=== PATIENT | female | born 1955 | race Caucasian/White ===

== ENCOUNTER 2017-03-31 12:44 | Outpatient (CLI) | payer OTHER | END 2017-03-31 12:45 | disposition home or self-care (01) | LOC: BICMAMMO 12:44 | PROVIDERS: ATTEND Family Medicine | DX: Z12.31 Encounter for screening mammogram for malignant neoplasm of breast (principal) | CPT/HCPCS: 77063; 77067 ==

== ENCOUNTER 2018-04-06 07:39 | Outpatient (CLI) | payer OTHER | END 2018-04-06 07:40 | disposition home or self-care (01) | LOC: BICMAMMO 07:39 | PROVIDERS: ATTEND Family Medicine | DX: Z12.31 Encounter for screening mammogram for malignant neoplasm of breast (principal) | CPT/HCPCS: 77063; 77067 ==

== ENCOUNTER 2019-04-14 07:45 | Outpatient (CLI) | payer OTHER ==
--- NOTE | 2019-04-14 08:21 | MMO ---
Bilateral MAMMO Bilat Screen [facility]. CLINICAL HISTORY: Patient is 63 years old and is seen for screening. The patient has no family history of breast cancer. The patient has no personal history of cancer. VIEWS: The views performed were: bilateral craniocaudal with tomosynthesis and bilateral mediolateral oblique with tomosynthesis. FILMS COMPARED: The present examination has been compared to prior imaging studies performed at [facility] on 02/19/2015, 02/26/2016, 03/31/2017 and 04/06/2018. This study has been interpreted with the assistance of computer-aided detection. MAMMOGRAM FINDINGS: There are scattered fibroglandular densities. There are no suspicious masses, suspicious calcifications, or new areas of architectural distortion. IMPRESSION: THERE IS NO MAMMOGRAPHIC EVIDENCE OF MALIGNANCY. A ROUTINE FOLLOW-UP MAMMOGRAM IN 1 YEAR IS RECOMMENDED. THE RESULTS OF THIS EXAM WERE SENT TO THE PATIENT. ACR BI-RADS Category 1 - Negative MAMMOGRAPHY NOTE: 1. A negative mammogram report should not delay a biopsy if a dominant of clinically suspicious mass is present. 2. Approximately 10% to 15% of breast cancers are not detected by mammography. 3. Adenosis and dense breasts may obscure an underlying neoplasm. Reported by: FRANCIS GONZALES MD Electonically Signed: [id number]
== END 2019-04-14 07:46 | disposition home or self-care (01) ==
LOC: BICMAMMO 07:45
PROVIDERS: ATTEND Family Medicine
DX: Z12.31 Encounter for screening mammogram for malignant neoplasm of breast (principal)
CPT/HCPCS: 77063; 77067

== ENCOUNTER 2020-04-11 16:46 | Inpatient (IN) | payer OTHER ==
[~2020-04-11 16:46] MED LIST: Iopamidol-370 76% 500 ML 1 ML ONE
[2020-04-11 17:31] LABS: #Lymphocytes 1.1 thou/uL (1.20-3.40); #Monocytes 0.6 thou/uL (0.11-0.59); #Neutrophils 7.5 thou/uL (1.40-6.50); %Basophils 0.1 % (0.0-1.0); %Eosinophils 0.1 % (0.0-10.0); %Lymphocytes 12.1 % (21.0-51.0); %Monocytes 6.1 % (0.0-10.0); %Neutrophils 81.5 % (42.0-75.0); Mean Corpuscular Hemoglobin 29.9 pg (27.0-31.0); Mean Corpuscular Volume 90.6 fL (78.0-98.0); Mean Platelet Volume 7.6 fL (7.4-10.4); Platelet Count 306 thou/uL (130-400); RBC Distribution Width 11.7 % (11.5-14.5); White Blood Cell (WBC) Count 9.2 thou/uL (4.8-10.8)
--- NOTE | 2020-04-11 17:36 | RAD ---
Portable frontal chest radiograph: 04/11/2020 COMPARISON: 12/14/2015 HISTORY: Shortness of breath, Covid positive patient FINDINGS: Interstitial and alveolar opacity noted in the perihilar regions and both lung bases, left greater than right. No pneumothorax or large volume pleural effusion. IMPRESSION: Pulmonary parenchymal opacities as detailed above, suspicious for bilateral Covid pneumon ia.
[2020-04-11 17:39] LABS: PTT 30.1 sec (22.9-36.1)
[2020-04-11 17:54] LABS: ALT (SGPT) 28 U/L (8-55); AST (SGOT) 31 U/L (5-34); Albumin 4.4 g/dL (3.4-4.8); Alkaline Phosphatase 81 U/L (40-110); Anion Gap 20 mmol/L (10-20); BUN (Urea Nitrogen) 28 mg/dL (9.8-20.1); Bilirubin, Total 0.4 mg/dL (0.2-1.2); Calc. Creatinine Clearance 0 mL/min (70-130); Calcium 8.9 mg/dL (7.8-10.44); Carbon Dioxide 25 mmol/L (23-31); Chloride 96 mmol/L (98-107); Globulin 3.4 g/dL (2.4-3.5); Glucose 137 mg/dL (80-115); Potassium 4.5 mmol/L (3.5-5.1); Protein, Total 7.8 g/dL (6.0-8.3); Sodium 136 mmol/L (136-145)
[2020-04-11] MEDS ORDERED: Dexamethasone 4 mg/ml Vial ONE (18:10)
[2020-04-11] MEDS ORDERED: cefTRIAXone\\ROCEPHIN 1 GM VIAL ONE (18:10)
--- NOTE | 2020-04-11 18:37 | CT ---
CT angiogram chest: 04/11/2020 COMPARISON: None HISTORY: Covid positive patient with findings suspicious for bilateral Covid pneumonia on recent ches t radiograph. Increased shortness of breath with chest pain TECHNIQUE: Axial CT imaging at 2.5 mm intervals through the chest with IV contrast. Coronal and sagit kapil 3-D reformatted imaging obtained. FINDINGS: No axillary, hilar, or mediastinal lymphadenopathy. No pleural, pericardial, or mediastinal fluid. Limited assessment of the upper abdomen demonstrates hepatic hypodensities suggesting steatosis. No pulmonary arterial filling defect is seen to suggest the presence of acute pulmonary ar terial embolism. There is no pneumothorax seen on either side. There is extensive prominent interstitial and groundglass opacity within both lungs, most significant ly involving the bilateral lower lobes, the inferior posterior aspect of the left upper lobe/lingula, and the right middle lobe. Scattered areas of peripheral groundglass opacity are noted within bilateral upper lobes as well. No endobronchial lesion is seen. No acute osseous abnormality. IMPRESSION: Findings suspicious for extensive bilateral Covid pneumonia. No associated pulmonary doreen rial embolism is appreciated.
[2020-04-11] MEDS ORDERED: Guaifenesin DM 100-10/5 ML UDCUP PO PRN (18:59)
[2020-04-11] MEDS ORDERED: Senokot S 8.6-50 MG TAB PO PRN (18:59)
[2020-04-11] MEDS ORDERED: Acetaminophen 325 MG TAB PO PRN (18:59)
[2020-04-11] MEDS ORDERED: Ondansetron ODT 4 MG TAB PO PRN (18:59)
[2020-04-11] MEDS ORDERED: Calcium Carbonate 500 MG ChewTAB PO PRN (18:59)
[2020-04-11] MEDS ORDERED: Ondansetron PF 4 MG/2 ML Vial IVP PRN (18:59)
--- NOTE | 2020-04-11 19:09 | PDOC.HHP ---
Hospitalist HPI - History of Present Illness Chest pain History of Present Illness: PCP: Dr. Abhijit Alvarez The patient is a 64-year-old female with a past medical history significant for hypertension and hyperlipidemia that presents to emergency department for the above complaint. Patient reports the gradual onset of generalized chest pain for the past week. Pain is located throughout her chest, described as pressure- like, dull, exacerbated with standing up and relieved by nothing. She reports associated shortness of breath. She was diagnosed with Covid 19 virus 9 days ago, which would put her diagnosis date is 04/02/2020. She reports associated nonproductive cough that has since resolved. She reports that she was treated with a Z-Joe that she completed today. She denies heart palpitations and swelling to her lower extremities. She has no history of DVT/PE. No history of COPD/asthma. She denies any cough or hemoptysis at this time. She denies fever or chills. Reports mild nausea, no vomiting, hematochezia/melena, diarrhea. She denies any dysuria or hematuria. ED Course: Temperature 99, BP 127/87, HR 94, RR 18, SPO2 86% room airimproved 100% on [address] EKG normal sinus rhythm, T wave abnormalities CTA negative for pulmonary embolism, positive bilateral Covid pneumonia. CXR shows bilateral Covid pneumonia WBC 9.2, lymphocytopenia, ESR 93, CRP 3.85, LA 2.4 Medication administration: Rocephin IVPB Dexamethasone IVP Hospitalist ROS - Review of Systems All other systems reviewed; all pertinent +/- noted in HPI/Subj - Medication Medications: 1. Lovastatin 40 mg p.o. nightly 2. Bystolic 10 mg p.o. daily 3. Losartan 50 mg p.o. every morning Allergies: Penicillin, Bactrim CODE STATUS is full code. Hospitalist History - Past Medical History Source: patient Cardiac: reports: HTN, Hyperlipidemia - Past Surgical History Past Surgical History: reports: Hysterectomy - Family History Other Family History: Noncontributory to this case. - Social History Smoking Status: Never smoker Alcohol: reports: None Drugs: reports: none Living Situation: Alone Activity level: independent ambulation - Exam General Appearance: NAD, awake alert. negative: ill appearing General - other findings: Comfortable on 4 L nasal cannula Eye: anicteric sclera ENT: normocephalic atraumatic Neck: supple, no lymphadenopathy Heart: RRR, no murmur, no gallops, no rubs, normal peripheral pulses Respiratory: no wheezes, no ronchi, normal chest expansion, no tachypnea, rales Gastrointestinal: soft, non-tender, non-distended, normal bowel sounds, no guarding, no rigidity Extremities: no cyanosis, no edema Skin: no rashes Neurological: no focal deficits Musculoskeletal: normal tone, normal strength Psychiatric: normal affect, A&O x 3 Hospitalist Results - Labs Result Diagrams: 04/11/20 17:18 04/11/20 17:18 Lab results: WBC 9.2 thou/uL (4.8-10.8) 04/11/20 17:18 Hgb 14.0 g/dL (12.0-16.0) 04/11/20 17:18 Hct 42.5 % (36.0-47.0) 04/11/20 17:18 MCV 90.6 fL (78.0-98.0) 04/11/20 17:18 Plt Count 306 thou/uL (130-400) 04/11/20 17:18 Neutrophils % 81.5 % (42.0-75.0) H 04/11/20 17:18 ESR Westergren 93 mm/hr (Less than 30) H 04/11/20 17:18 Sodium 136 mmol/L (136-145) 04/11/20 17:18 Potassium 4.5 mmol/L (3.5-5.1) 04/11/20 17:18 Chloride 96 mmol/L (98-107) L 04/11/20 17:18 Carbon Dioxide 25 mmol/L (23-31) 04/11/20 17:18 BUN 28 mg/dL (9.8-20.1) H 04/11/20 17:18 Creatinine 0.86 mg/dL (0.6-1.1) 04/11/20 17:18 Glucose 137 mg/dL (80-115) H 04/11/20 17:18 Lactic Acid 2.4 mmol/L (0.5-2.2) H 04/11/20 17:18 Calcium 8.9 mg/dL (7.8-10.44) 04/11/20 17:18 Total Bilirubin 0.4 mg/dL (0.2-1.2) 04/11/20 17:18 AST 31 U/L (5-34) 04/11/20 17:18 ALT 28 U/L (8-55) 04/11/20 17:18 Alkaline Phosphatase 81 U/L (40-110) 04/11/20 17:18 C-Reactive Protein 3.85 mg/dL (= or < 0.5) H 04/11/20 17:17 Serum Total Protein 7.8 g/dL (6.0-8.3) 04/11/20 17:18 Albumin 4.4 g/dL (3.4-4.8) 04/11/20 17:18 - EKG Interpretation EKG: Normal sinus rhythm, T wave abnormalities - Radiology Interpretation Chest x-ray Status: report reviewed by me Additional Comment: Bilateral Covid pneumonia CT scan - chest Status: report reviewed by me Additional Comment: Negative pulmonary embolism. Positive bilateral Covid pneumonia Hospitalist H&P A/P - Problem (1) Pneumonia due to COVID-19 virus Code(s): U07.1 - COVID-19; J12.82 - PNEUMONIA DUE TO CORONAVIRUS DISEASE 2018 Status: Acute (2) Acute respiratory failure with hypoxia Code(s): J96.01 - ACUTE RESPIRATORY FAILURE WITH HYPOXIA Status: Acute (3) Chest pain Code(s): R07.9 - CHEST PAIN, UNSPECIFIED Status: Acute (4) Dehydration Code(s): E86.0 - DEHYDRATION Status: Acute (5) Hypertension Code(s): I10 - ESSENTIAL (PRIMARY) HYPERTENSION Status: Chronic (6) Hyperlipidemia Code(s): E78.5 - HYPERLIPIDEMIA, UNSPECIFIED Status: Chronic - Plan Plan: 64/F with PMH HTN and HLD presents for chest pain and shortness of breath. Admit to medical floor, inpatient status. Expected length of stay greater than 2 midnights. #Pneumonia due to COVID-19 virus Diagnosed 04/02/2020. Reported completing Z-Joe on 04/11/2020. Continue Rocephin and dexamethasone. Start Lovenox prophylaxis. Pharmacy communication to start remdesivir. Isolation precautions. Vitamin D, vitamin C, zinc. Mucinex DM as needed Supplemental oxygen. Trend acute phase reactants. #Acute respiratory failure with hypoxia Likely related problem #1. #Chest pain Likely related to problem #1 and 2. EKG normal sinus rhythm, T wave abnormalities. No ST elevation. Trend troponins, give aspirin. #Dehydration Reported decreased oral intake. BUN 28, creatinine 26 LA 2.4 Give 1 L normal saline x1 Repeat lactic acid #Hypertension Presented normotensive. Restart home dose of Bystolic and losartan. #Hyperlipidemia Chronic. Restart home dose lovastatin. Lovenox for DVT prophylaxis. Pepcid for GI prophylaxis. CODE STATUS full code. Discussed the case with attending physician, Dr. Mandel who agrees with plan of care.
[2020-04-11] MEDS ORDERED: Sodium Chloride 0.9% 1,000 ML IV SCH (20:15)
[2020-04-11] MEDS ORDERED: Aspirin 325 mg Enteric Coated Tablet PO SCH (20:15)
[2020-04-11 20:17] LABS: Troponin I Less than 0.010 ng/mL (< 0.028)
[2020-04-11 20:33] LABS: Lactic Acid 1.3 mmol/L (0.5-2.2)
[2020-04-11] MEDS: Famotidine 20 MG TAB PO SCH (22:15)
[2020-04-11] MEDS: Enoxaparin Sodium 40 MG/0.4 ML SYRINGE SC SCH (22:15)
[2020-04-11 22:56] LABS: Troponin I Less than 0.010 ng/mL (< 0.028)
[2020-04-12 01:38] LABS: Troponin I Less than 0.010 ng/mL (< 0.028)
[2020-04-12 06:36] LABS: #Lymphocytes 0.7 thou/uL (1.20-3.40); #Monocytes 0.1 thou/uL (0.11-0.59); #Neutrophils 4.1 thou/uL (1.40-6.50); %Lymphocytes 13.8 % (21.0-51.0); %Monocytes 2.9 % (0.0-10.0); %Neutrophils 83.2 % (42.0-75.0); Hemoglobin 12.3 g/dL (12.0-16.0); Mean Corpuscular HGB CONC 34.2 g/dL (32.0-36.0); Mean Corpuscular Volume 90.6 fL (78.0-98.0); Mean Platelet Volume 7.5 fL (7.4-10.4); Platelet Count 266 thou/uL (130-400); RBC Distribution Width 11.7 % (11.5-14.5); Red Blood Cell (RBC) Count 3.98 mill/uL (4.20-5.40); White Blood Cell (WBC) Count 4.9 thou/uL (4.8-10.8)
[2020-04-12 06:59] LABS: Anion Gap 13 mmol/L (10-20); BUN (Urea Nitrogen) 25 mg/dL (9.8-20.1); Calc. Creatinine Clearance 88 mL/min (70-130); Calcium 8.5 mg/dL (7.8-10.44); Carbon Dioxide 26 mmol/L (23-31); Chloride 102 mmol/L (98-107); Glucose 150 mg/dL (80-115); Potassium 4.2 mmol/L (3.5-5.1); Sodium 137 mmol/L (136-145)
[2020-04-12 08:04] LABS: SARS-CoV-2 by NAA DETECTED (NotDetected)
[2020-04-12 08:05] LABS: SARS-CoV-2 MS2 Positive; SARS-CoV-2 N Gene Positive; SARS-CoV-2 S Gene Positive; SARS-CoV-2 orf1ab Positive
[2020-04-12] MEDS ORDERED: REMDESIVIR (EUA) 200 MG in Sodium Chloride 0.9% 250 ML 210 ML IV SCH (08:15)
[2020-04-12] MEDS: Famotidine 20 MG TAB PO SCH (08:35)
[2020-04-12] MEDS: Saccharomyces boulardii 250 MG CAP PO SCH (08:35)
[2020-04-12] MEDS: Zinc Sulfate 220 MG CAP PO SCH (08:36)
[2020-04-12] MEDS: Cholecalciferol 1,000 UNITS (25 MCG) TAB PO SCH (08:36)
[2020-04-12] MEDS: Dexamethasone 4 mg/ml Vial SLOW IVP SCH (08:36)
[2020-04-12] MEDS: Ascorbic Acid 500 mg Chewable Tablet PO SCH (08:36)
[2020-04-12] MEDS: Enoxaparin Sodium 40 MG/0.4 ML SYRINGE SC SCH ×2 (08:38→21:53)
[2020-04-12] MEDS ORDERED: Prevnar 13-Val Conj/PF 0.5 ML SYRINGE IM ONE (09:00)
--- NOTE | 2020-04-12 15:31 | PDOC.HOSPP ---
- Subjective Encounter Date: 04/12/20 Encounter Time: 09:45 Subjective: no new complaints, sob is better on nasal canula O2 - Objective Vital Signs & Weight: Vital Signs (12 hours) Temp Pulse Resp BP Pulse Ox 04/12/20 12:00 98.1 F 59 L 20 143/86 H 96 04/12/20 08:00 93 L 04/12/20 07:50 97.9 F 60 15 130/84 93 L 04/12/20 04:44 97.8 F 55 L 18 134/82 93 L Weight Admit Weight 158 lb Weight 158 lb Result Diagrams: 04/12/20 05:59 04/12/20 05:59 Hospitalist ROS - Medication Medications: Active Medications Generic Name Dose Route Start Last Admin Trade Name Lawq PRN Reason Stop Dose Admin Ascorbic Acid 1,000 mg 04/12/20 09:00 04/12/20 08:36 Ascorbic Acid 500 Mg Chewable Tablet PO 1,000 mg DAILY AFTAB Administration Cholecalciferol 5,000 units 04/12/20 09:00 04/12/20 08:36 Cholecalciferol 1,000 Units (25 Mcg) Tab PO 5,000 units DAILY AFTAB Administration Dexamethasone 6 mg 04/12/20 09:00 04/12/20 08:36 Dexamethasone 4 Mg/Ml Vial SLOW IVP 6 mg DAILY AFTAB Administration Enoxaparin Sodium 40 mg 04/11/20 21:00 04/12/20 08:38 Enoxaparin Sodium 40 Mg/0.4 Ml Syringe SC 40 mg 0900,2100 AFTAB Administration Famotidine 20 mg 04/11/20 21:00 04/12/20 08:35 Famotidine 20 Mg Tab PO 20 mg BID AFTAB Administration Saccharomyces Boulardii 250 mg 04/12/20 09:00 04/12/20 08:35 Saccharomyces Boulardii 250 Mg Cap PO 250 mg DAILY AFTAB Administration Zinc Sulfate 220 mg 04/12/20 09:00 04/12/20 08:36 Zinc Sulfate 220 Mg Cap PO 220 mg DAILY AFTAB Administration - Exam General Appearance: awake alert Eye: PERRL, anicteric sclera ENT: no oropharyngeal lesions, moist mucosa Neck: supple, no JVD Heart: RRR, no murmur Respiratory: no wheezes, no rales, rhonchi Gastrointestinal: soft, non-tender, non-distended, normal bowel sounds Extremities: no cyanosis, no edema Neurological: cranial nerve grossly intact, no focal deficits Psychiatric: normal affect, A&O x 3 Hosp A/P (1) Acute respiratory failure with hypoxia Code(s): J96.01 - ACUTE RESPIRATORY FAILURE WITH HYPOXIA Status: Acute (2) Pneumonia due to COVID-19 virus Code(s): U07.1 - COVID-19; J12.82 - PNEUMONIA DUE TO CORONAVIRUS DISEASE 2018 Status: Acute (3) Hyperlipidemia Code(s): E78.5 - HYPERLIPIDEMIA, UNSPECIFIED Status: Chronic Qualifiers: Hyperlipidemia type: unspecified Qualified Code(s): E78.5 - Hyperlipidemia, unspecified (4) Hypertension Code(s): I10 - ESSENTIAL (PRIMARY) HYPERTENSION Status: Chronic Qualifiers: Hypertension type: essential hypertension Qualified Code(s): I10 - Essential (primary) hypertension - Plan is on nasal canula O2, dexamethasone, remdesivir. dc all antibiotics to ambulate as tolerated encourage po intake hemostable
[2020-04-12] MEDS ORDERED: cefTRIAXone\\ROCEPHIN 1 GM in Sodium Chloride 0.9% 100 ML IVPB SCH (18:00)
[2020-04-13 06:12] LABS: #Lymphocytes 1.2 thou/uL (1.20-3.40); #Monocytes 0.6 thou/uL (0.11-0.59); #Neutrophils 7.5 thou/uL (1.40-6.50); %Basophils 0.3 % (0.0-1.0); %Lymphocytes 13.3 % (21.0-51.0); %Monocytes 6.3 % (0.0-10.0); %Neutrophils 80.2 % (42.0-75.0); Hemoglobin 11.8 g/dL (12.0-16.0); Mean Corpuscular HGB CONC 33.3 g/dL (32.0-36.0); Mean Corpuscular Hemoglobin 30.2 pg (27.0-31.0); Mean Corpuscular Volume 90.4 fL (78.0-98.0); Mean Platelet Volume 7.7 fL (7.4-10.4); Platelet Count 288 thou/uL (130-400); RBC Distribution Width 11.4 % (11.5-14.5); White Blood Cell (WBC) Count 9.3 thou/uL (4.8-10.8)
[2020-04-13 06:39] LABS: ALT (SGPT) 31 U/L (8-55); AST (SGOT) 31 U/L (5-34); Albumin 3.5 g/dL (3.4-4.8); Alkaline Phosphatase 62 U/L (40-110); Anion Gap 15 mmol/L (10-20); BUN (Urea Nitrogen) 27 mg/dL (9.8-20.1); Bilirubin, Total 0.3 mg/dL (0.2-1.2); Calc. Creatinine Clearance 85 mL/min (70-130); Calcium 8.6 mg/dL (7.8-10.44); Carbon Dioxide 26 mmol/L (23-31); Chloride 103 mmol/L (98-107); Glucose 108 mg/dL (80-115); Potassium 4.6 mmol/L (3.5-5.1); Protein, Total 6.5 g/dL (6.0-8.3); Sodium 139 mmol/L (136-145)
[2020-04-13] MEDS: Saccharomyces boulardii 250 MG CAP PO SCH (09:26)
[2020-04-13] MEDS: Ascorbic Acid 500 mg Chewable Tablet PO SCH (09:26)
[2020-04-13] MEDS: Zinc Sulfate 220 MG CAP PO SCH (09:26)
[2020-04-13] MEDS: Cholecalciferol 1,000 UNITS (25 MCG) TAB PO SCH (09:27)
[2020-04-13] MEDS: REMDESIVIR (EUA) 100 MG in Sodium Chloride 0.9% 250 ML 230 ML IV SCH (09:27)
[2020-04-13] MEDS: Enoxaparin Sodium 40 MG/0.4 ML SYRINGE SC SCH ×2 (09:27→20:44)
[2020-04-13] MEDS: Dexamethasone 4 mg/ml Vial SLOW IVP SCH (11:39)
--- NOTE | 2020-04-13 15:34 | PDOC.HOSPP ---
- Subjective Encounter Date: 04/13/20 Encounter Time: 10:00 Subjective: no sob, feels comfortable on nasal canula is amb in room, no diarrhea or fever - Objective Vital Signs & Weight: Vital Signs (12 hours) Temp Pulse Resp BP Pulse Ox 04/13/20 11:54 98.6 F 64 20 148/84 H 100 04/13/20 08:00 98.7 F 59 L 20 120/79 100 04/13/20 04:00 98.0 F 53 L 18 130/78 98 Weight Admit Weight 158 lb Weight 158 lb I&O: 04/12/20 04/13/20 04/14/20 06:59 06:59 06:59 Intake Total 1050 Balance 1050 Result Diagrams: 04/13/20 05:42 04/13/20 05:42 Hospitalist ROS - Medication Medications: Active Medications Generic Name Dose Route Start Last Admin Trade Name Freq PRN Reason Stop Dose Admin Ascorbic Acid 1,000 mg 04/12/20 09:00 04/13/20 09:26 Ascorbic Acid 500 Mg Chewable Tablet PO 1,000 mg DAILY AFTAB Administration Cholecalciferol 5,000 units 04/12/20 09:00 04/13/20 09:27 Cholecalciferol 1,000 Units (25 Mcg) Tab PO 5,000 units DAILY AFTAB Administration Dexamethasone 6 mg 04/12/20 09:00 04/13/20 11:39 Dexamethasone 4 Mg/Ml Vial SLOW IVP 6 mg DAILY AFTAB Administration Enoxaparin Sodium 40 mg 04/11/20 21:00 04/13/20 09:27 Enoxaparin Sodium 40 Mg/0.4 Ml Syringe SC 40 mg 0900,2100 AFTAB Administration Remdesivir 100 mg/ Sodium 250 mls @ 250 mls/hr 04/13/20 09:00 04/13/20 09:27 Chloride IV 04/16/20 09:59 250 mls 0900 AFTAB Administration Ondansetron HCl 4 mg 04/11/20 18:59 04/13/20 11:44 Ondansetron Pf 4 Mg/2 Ml Vial IVP 4 mg Q6H PRN Administration Nausea/Vomiting Pantoprazole Sodium 40 mg 04/13/20 09:00 04/13/20 09:27 Pantoprazole 40 Mg Tab PO 40 mg DAILY AFTAB Administration Saccharomyces Boulardii 250 mg 04/12/20 09:00 04/13/20 09:26 Saccharomyces Boulardii 250 Mg Cap PO 250 mg DAILY AFTAB Administration Sodium Chloride 10 ml 04/11/20 18:59 04/13/20 11:39 Flush - Normal Saline 10 Ml Syringe IVF 10 ml PRN PRN Administration Saline Flush Zinc Sulfate 220 mg 04/12/20 09:00 04/13/20 09:26 Zinc Sulfate 220 Mg Cap PO 220 mg DAILY AFTAB Administration - Exam General Appearance: awake alert Eye: PERRL, anicteric sclera ENT: no oropharyngeal lesions, moist mucosa Neck: supple, no JVD Heart: RRR, no murmur Respiratory: no wheezes, no rales, rhonchi Gastrointestinal: soft, non-tender, non-distended, normal bowel sounds Extremities: no cyanosis, no edema Neurological: cranial nerve grossly intact, no focal deficits Psychiatric: normal affect, A&O x 3 Hosp A/P (1) Acute respiratory failure with hypoxia Code(s): J96.01 - ACUTE RESPIRATORY FAILURE WITH HYPOXIA Status: Acute (2) Pneumonia due to COVID-19 virus Code(s): U07.1 - COVID-19; J12.82 - PNEUMONIA DUE TO CORONAVIRUS DISEASE 2019 Status: Acute (3) Hyperlipidemia Code(s): E78.5 - HYPERLIPIDEMIA, UNSPECIFIED Status: Chronic Qualifiers: Hyperlipidemia type: unspecified Qualified Code(s): E78.5 - Hyperlipidemia, unspecified (4) Hypertension Code(s): I10 - ESSENTIAL (PRIMARY) HYPERTENSION Status: Chronic Qualifiers: Hypertension type: essential hypertension Qualified Code(s): I10 - Essential (primary) hypertension - Plan is on 2 lts nasal canula O2, dexamethasone, remdesivir. to ambulate as tolerated encourage po intake hemostable dc plan when she finishes remdesivir course, may not require home O2?
[2020-04-14 05:07] VITALS: BMI 27.8
[2020-04-14 06:47] LABS: #Lymphocytes 1.3 thou/uL (1.20-3.40); #Monocytes 0.7 thou/uL (0.11-0.59); #Neutrophils 4.9 thou/uL (1.40-6.50); %Basophils 0.1 % (0.0-1.0); %Eosinophils 0.2 % (0.0-10.0); %Lymphocytes 18.8 % (21.0-51.0); %Neutrophils 70.8 % (42.0-75.0); Hemoglobin 12.3 g/dL (12.0-16.0); Mean Corpuscular HGB CONC 34.1 g/dL (32.0-36.0); Mean Corpuscular Hemoglobin 30.8 pg (27.0-31.0); Mean Corpuscular Volume 90.3 fL (78.0-98.0); Mean Platelet Volume 7.3 fL (7.4-10.4); Platelet Count 310 thou/uL (130-400); RBC Distribution Width 11.5 % (11.5-14.5); Red Blood Cell (RBC) Count 3.98 mill/uL (4.20-5.40); White Blood Cell (WBC) Count 6.8 thou/uL (4.8-10.8)
[2020-04-14 07:13] LABS: ALT (SGPT) 30 U/L (8-55); AST (SGOT) 22 U/L (5-34); Albumin 3.6 g/dL (3.4-4.8); Alkaline Phosphatase 64 U/L (40-110); Anion Gap 17 mmol/L (10-20); BUN (Urea Nitrogen) 24 mg/dL (9.8-20.1); Bilirubin, Total 0.3 mg/dL (0.2-1.2); Calc. Creatinine Clearance 91 mL/min (70-130); Calcium 8.8 mg/dL (7.8-10.44); Carbon Dioxide 24 mmol/L (23-31); Chloride 102 mmol/L (98-107); Glucose 109 mg/dL (80-115); Potassium 4.7 mmol/L (3.5-5.1); Protein, Total 6.6 g/dL (6.0-8.3); Sodium 138 mmol/L (136-145)
[2020-04-14] MEDS: Zinc Sulfate 220 MG CAP PO SCH (08:57)
[2020-04-14] MEDS: Cholecalciferol 1,000 UNITS (25 MCG) TAB PO SCH (08:57)
[2020-04-14] MEDS: Enoxaparin Sodium 40 MG/0.4 ML SYRINGE SC SCH ×2 (08:58→20:23)
[2020-04-14] MEDS: Dexamethasone 4 mg/ml Vial SLOW IVP SCH (08:58)
[2020-04-14] MEDS: Ascorbic Acid 500 mg Chewable Tablet PO SCH (08:58)
[2020-04-14] MEDS: Saccharomyces boulardii 250 MG CAP PO SCH (08:59)
--- NOTE | 2020-04-14 10:09 | EKG ---
Test Reason : SOB Blood Pressure : / mmHG Vent. Rate : 091 BPM Atrial Rate : 091 BPM P-R Int : 164 ms QRS Dur : 088 ms QT Int : 346 ms P-R-T Axes : 011 035 022 degrees QTc Int : 425 ms Normal sinus rhythm Nonspecific T wave abnormality Abnormal ECG Confirmed by ESTHER GALAVIZ, JOON Sidhu ([id number]), newspaper managing editor YANNA SIMON ([id number]) on 04/14/2020 10:09:45 AM Referred By: Confirmed By:JOON SANTANA MD
[2020-04-14] MEDS: REMDESIVIR (EUA) 100 MG in Sodium Chloride 0.9% 250 ML 230 ML IV SCH (12:25)
--- NOTE | 2020-04-14 17:32 | PDOC.HOSPP ---
- Subjective Encounter Date: 04/14/20 Encounter Time: 17:30 Subjective: Ms. Domingo was seen today in follow-up of COVID pneumonia with respiratory failure. She is feeling better. She denies cough or chest pain. She denies diarrhea. She denies any leg pain. - Objective Vital Signs & Weight: Vital Signs (12 hours) Temp Pulse Resp BP Pulse Ox 04/14/20 15:12 98.1 F 64 16 133/79 99 04/14/20 12:00 97.5 F L 60 16 124/79 98 04/14/20 07:43 97.9 F 52 L 18 131/81 99 04/14/20 05:52 98.1 F 60 18 143/80 H 98 Weight Admit Weight 158 lb Weight 157 lb I&O: 04/13/20 04/14/20 04/15/20 06:59 06:59 06:59 Intake Total 1050 Balance 1050 Result Diagrams: 04/14/20 06:32 04/14/20 06:32 Hospitalist ROS - Medication Medications: Active Medications Generic Name Dose Route Start Last Admin Trade Name Freq PRN Reason Stop Dose Admin Ascorbic Acid 1,000 mg 04/12/20 09:00 04/14/20 08:58 Ascorbic Acid 500 Mg Chewable Tablet PO 1,000 mg DAILY AFTAB Administration Cholecalciferol 5,000 units 04/12/20 09:00 04/14/20 08:57 Cholecalciferol 1,000 Units (25 Mcg) Tab PO 5,000 units DAILY AFTAB Administration Dexamethasone 6 mg 04/12/20 09:00 04/14/20 08:58 Dexamethasone 4 Mg/Ml Vial SLOW IVP 6 mg DAILY AFTAB Administration Enoxaparin Sodium 40 mg 04/11/20 21:00 04/14/20 08:58 Enoxaparin Sodium 40 Mg/0.4 Ml Syringe SC 40 mg 0900,2100 AFTAB Administration Remdesivir 100 mg/ Sodium 250 mls @ 250 mls/hr 04/13/20 09:00 04/14/20 12:25 Chloride IV 04/16/20 09:59 250 mls 0900 AFTAB Administration Ondansetron HCl 4 mg 04/11/20 18:59 04/13/20 11:44 Ondansetron Pf 4 Mg/2 Ml Vial IVP 4 mg Q6H PRN Administration Nausea/Vomiting Pantoprazole Sodium 40 mg 04/13/20 09:00 04/14/20 08:57 Pantoprazole 40 Mg Tab PO 40 mg DAILY AFTAB Administration Saccharomyces Boulardii 250 mg 04/12/20 09:00 04/14/20 08:59 Saccharomyces Boulardii 250 Mg Cap PO 250 mg DAILY AFTAB Administration Sodium Chloride 10 ml 04/11/20 18:59 04/13/20 11:39 Flush - Normal Saline 10 Ml Syringe IVF 10 ml PRN PRN Administration Saline Flush Zinc Sulfate 220 mg 04/12/20 09:00 04/14/20 08:57 Zinc Sulfate 220 Mg Cap PO 220 mg DAILY AFTAB Administration - Exam Eye: PERRL, anicteric sclera ENT: normocephalic atraumatic, no oropharyngeal lesions Heart: RRR, no murmur, no gallops, no rubs, normal peripheral pulses Respiratory: no wheezes, no ronchi, rales (at both bases) Gastrointestinal: soft, non-tender, non-distended, normal bowel sounds, no palpable masses, no hepatomegaly Extremities: no cyanosis (+ palpable d.p. pulses bilaterally no lesions), no edema Hosp A/P (1) Acute respiratory failure with hypoxia Code(s): J96.01 - ACUTE RESPIRATORY FAILURE WITH HYPOXIA Status: Acute (2) Pneumonia due to COVID-19 virus Code(s): U07.1 - COVID-19; J12.82 - PNEUMONIA DUE TO CORONAVIRUS DISEASE 2019 Status: Acute (3) Hyperlipidemia Code(s): E78.5 - HYPERLIPIDEMIA, UNSPECIFIED Status: Chronic Qualifiers: Hyperlipidemia type: unspecified Qualified Code(s): E78.5 - Hyperlipidemia, unspecified (4) Hypertension Code(s): I10 - ESSENTIAL (PRIMARY) HYPERTENSION Status: Chronic Qualifiers: Hypertension type: essential hypertension Qualified Code(s): I10 - Essential (primary) hypertension - Plan * Acute respiratory failure due to COVID pneumonia- She is receiving Remdesivir and Decadron * Add Incentive Spirometry * HTN- blood pressure is stable- will re-start Losartan in the AM * Hyperlipidemia- re-start her statin * DVT prophylaxis with Lovenox
[2020-04-14] MEDS: Atorvastatin Calcium 10 MG TAB PO SCH (20:23)
[2020-04-15 06:34] LABS: #Lymphocytes 1.5 thou/uL (1.20-3.40); #Monocytes 0.8 thou/uL (0.11-0.59); #Neutrophils 5.5 thou/uL (1.40-6.50); %Basophils 0.5 % (0.0-1.0); %Eosinophils 0.5 % (0.0-10.0); %Lymphocytes 19.4 % (21.0-51.0); %Monocytes 10.3 % (0.0-10.0); %Neutrophils 69.3 % (42.0-75.0); Hemoglobin 12.4 g/dL (12.0-16.0); Mean Corpuscular HGB CONC 34.2 g/dL (32.0-36.0); Mean Corpuscular Hemoglobin 30.5 pg (27.0-31.0); Mean Corpuscular Volume 89.2 fL (78.0-98.0); Mean Platelet Volume 7.5 fL (7.4-10.4); Platelet Count 345 thou/uL (130-400); RBC Distribution Width 11.4 % (11.5-14.5); Red Blood Cell (RBC) Count 4.08 mill/uL (4.20-5.40); White Blood Cell (WBC) Count 7.9 thou/uL (4.8-10.8)
[2020-04-15 06:56] LABS: ALT (SGPT) 32 U/L (8-55); AST (SGOT) 22 U/L (5-34); Albumin 3.6 g/dL (3.4-4.8); Alkaline Phosphatase 63 U/L (40-110); Anion Gap 15 mmol/L (10-20); BUN (Urea Nitrogen) 28 mg/dL (9.8-20.1); Bilirubin, Total 0.3 mg/dL (0.2-1.2); Calc. Creatinine Clearance 92 mL/min (70-130); Calcium 8.5 mg/dL (7.8-10.44); Carbon Dioxide 26 mmol/L (23-31); Chloride 101 mmol/L (98-107); Glucose 102 mg/dL (80-115); Potassium 4.7 mmol/L (3.5-5.1); Protein, Total 6.6 g/dL (6.0-8.3); Sodium 137 mmol/L (136-145)
[2020-04-15] MEDS: Ascorbic Acid 500 mg Chewable Tablet PO SCH (09:17)
[2020-04-15] MEDS: Saccharomyces boulardii 250 MG CAP PO SCH (09:17)
[2020-04-15] MEDS: REMDESIVIR (EUA) 100 MG in Sodium Chloride 0.9% 250 ML 230 ML IV SCH (09:17)
[2020-04-15] MEDS: Zinc Sulfate 220 MG CAP PO SCH (09:18)
[2020-04-15] MEDS: Dexamethasone 4 mg/ml Vial SLOW IVP SCH (09:18)
[2020-04-15] MEDS: Cholecalciferol 1,000 UNITS (25 MCG) TAB PO SCH (09:18)
[2020-04-15] MEDS: Enoxaparin Sodium 40 MG/0.4 ML SYRINGE SC SCH ×2 (09:18→20:40)
[2020-04-15] MEDS: Losartan 25 MG TAB PO SCH (09:18)
[2020-04-15] MEDS: Atorvastatin Calcium 10 MG TAB PO SCH (20:40)
[2020-04-16 06:22] LABS: #Lymphocytes 1.6 thou/uL (1.20-3.40); #Monocytes 0.8 thou/uL (0.11-0.59); #Neutrophils 6.7 thou/uL (1.40-6.50); %Eosinophils 0.4 % (0.0-10.0); %Lymphocytes 17.1 % (21.0-51.0); %Monocytes 8.9 % (0.0-10.0); %Neutrophils 73.6 % (42.0-75.0); Hemoglobin 12.6 g/dL (12.0-16.0); Mean Corpuscular HGB CONC 33.6 g/dL (32.0-36.0); Mean Corpuscular Hemoglobin 30.7 pg (27.0-31.0); Mean Corpuscular Volume 91.2 fL (78.0-98.0); Mean Platelet Volume 7.3 fL (7.4-10.4); Platelet Count 365 thou/uL (130-400); RBC Distribution Width 11.3 % (11.5-14.5); Red Blood Cell (RBC) Count 4.09 mill/uL (4.20-5.40); White Blood Cell (WBC) Count 9.1 thou/uL (4.8-10.8)
[2020-04-16 06:47] LABS: ALT (SGPT) 33 U/L (8-55); AST (SGOT) 18 U/L (5-34); Albumin 3.6 g/dL (3.4-4.8); Alkaline Phosphatase 63 U/L (40-110); Anion Gap 14 mmol/L (10-20); BUN (Urea Nitrogen) 27 mg/dL (9.8-20.1); Bilirubin, Total 0.4 mg/dL (0.2-1.2); Calc. Creatinine Clearance 82 mL/min (70-130); Calcium 8.8 mg/dL (7.8-10.44); Carbon Dioxide 27 mmol/L (23-31); Chloride 101 mmol/L (98-107); Glucose 107 mg/dL (80-115); Potassium 4.6 mmol/L (3.5-5.1); Protein, Total 6.6 g/dL (6.0-8.3); Sodium 137 mmol/L (136-145)
[2020-04-16] MEDS: REMDESIVIR (EUA) 100 MG in Sodium Chloride 0.9% 250 ML 230 ML IV SCH (10:21)
[2020-04-16] MEDS: Cholecalciferol 1,000 UNITS (25 MCG) TAB PO SCH (10:22)
[2020-04-16] MEDS: Dexamethasone 4 mg/ml Vial SLOW IVP SCH (10:22)
[2020-04-16] MEDS: Saccharomyces boulardii 250 MG CAP PO SCH (10:22)
[2020-04-16] MEDS: Ascorbic Acid 500 mg Chewable Tablet PO SCH (10:22)
[2020-04-16] MEDS: Losartan 25 MG TAB PO SCH (10:23)
[2020-04-16] MEDS: Enoxaparin Sodium 40 MG/0.4 ML SYRINGE SC SCH (10:23)
[2020-04-16] MEDS: Zinc Sulfate 220 MG CAP PO SCH (10:46)
[2020-04-16 17:02] VITALS: BP 111/78; TEMP 97.9
--- NOTE | 2020-04-16 17:13 | PDOC.HOSPP ---
- Subjective Encounter Date: 04/16/20 Encounter Time: 17:11 Subjective: Ms Domingo was seen today in follow-up of COVID peumonia. She is breathing better. No new complaints. - Objective Vital Signs & Weight: Vital Signs (12 hours) Temp Pulse Resp BP Pulse Ox 04/16/20 17:01 97.9 F 70 16 111/78 98 04/16/20 11:45 97.8 F 71 16 113/74 98 04/16/20 08:00 97.9 F 64 16 115/74 96 Weight Admit Weight 158 lb Weight 157 lb I&O: 04/15/20 04/16/20 04/17/20 06:59 06:59 06:59 Intake Total 400 Balance 400 Result Diagrams: 04/16/20 05:52 04/16/20 05:52 Hospitalist ROS - Medication Medications: Active Medications Generic Name Dose Route Start Last Admin Trade Name Freq PRN Reason Stop Dose Admin Ascorbic Acid 1,000 mg 04/12/20 09:00 04/16/20 10:22 Ascorbic Acid 500 Mg Chewable Tablet PO 1,000 mg DAILY AFTAB Administration Atorvastatin Calcium 10 mg 04/14/20 21:00 04/15/20 20:40 Atorvastatin Calcium 10 Mg Tab PO 10 mg HS AFTAB Administration Cholecalciferol 5,000 units 04/12/20 09:00 04/16/20 10:22 Cholecalciferol 1,000 Units (25 Mcg) Tab PO 5,000 units DAILY AFTAB Administration Dexamethasone 6 mg 04/12/20 09:00 04/16/20 10:22 Dexamethasone 4 Mg/Ml Vial SLOW IVP 6 mg DAILY AFTAB Administration Enoxaparin Sodium 40 mg 04/11/20 21:00 04/16/20 10:23 Enoxaparin Sodium 40 Mg/0.4 Ml Syringe SC 40 mg 0900,2100 AFTAB Administration Losartan Potassium 50 mg 04/15/20 09:00 04/16/20 10:23 Losartan 25 Mg Tab PO 50 mg DAILY AFTAB Administration Ondansetron HCl 4 mg 04/11/20 18:59 04/13/20 11:44 Ondansetron Pf 4 Mg/2 Ml Vial IVP 4 mg Q6H PRN Administration Nausea/Vomiting Pantoprazole Sodium 40 mg 04/13/20 09:00 04/16/20 10:22 Pantoprazole 40 Mg Tab PO 40 mg DAILY AFTAB Administration Saccharomyces Boulardii 250 mg 04/12/20 09:00 04/16/20 10:22 Saccharomyces Boulardii 250 Mg Cap PO 250 mg DAILY AFTAB Administration Sodium Chloride 10 ml 04/11/20 18:59 04/13/20 11:39 Flush - Normal Saline 10 Ml Syringe IVF 10 ml PRN PRN Administration Saline Flush Zinc Sulfate 220 mg 04/12/20 09:00 04/16/20 10:46 Zinc Sulfate 220 Mg Cap PO Not Given DAILY AFTAB - Exam Eye: PERRL, anicteric sclera Heart: RRR, no murmur, no gallops, no rubs, normal peripheral pulses Respiratory: rales (at both bases) Gastrointestinal: soft, non-tender, non-distended, normal bowel sounds, no palpable masses, no hepatomegaly Extremities: no cyanosis, no edema Hosp A/P (1) Acute respiratory failure with hypoxia Code(s): J96.01 - ACUTE RESPIRATORY FAILURE WITH HYPOXIA Status: Acute (2) Pneumonia due to COVID-19 virus Code(s): U07.1 - COVID-19; J12.82 - PNEUMONIA DUE TO CORONAVIRUS DISEASE 2019 Status: Acute (3) Hyperlipidemia Code(s): E78.5 - HYPERLIPIDEMIA, UNSPECIFIED Status: Chronic Qualifiers: Hyperlipidemia type: unspecified Qualified Code(s): E78.5 - Hyperlipidemia, unspecified (4) Hypertension Code(s): I10 - ESSENTIAL (PRIMARY) HYPERTENSION Status: Chronic Qualifiers: Hypertension type: essential hypertension Qualified Code(s): I10 - Essential (primary) hypertension - Plan * Acute respiratory failure due to COVID pneumonia- She has complated her course of Remdesivir * HTN- blood pressure is stable * Stable for discharge oonce oxygen has been approved and delivered
--- NOTE | 2020-04-16 17:16 | PDOC.HOSPP ---
- Subjective Encounter Date: 04/15/20 Encounter Time: 16:00 Subjective: Ms. Domingo was seen today in follow-up of COVID pneumonia. She notes that her heart rate was low last night,she was told by the tech. She did not have any symptoms. - Objective Vital Signs & Weight: Vital Signs (12 hours) Temp Pulse Resp BP Pulse Ox 04/16/20 17:01 97.9 F 70 16 111/78 98 04/16/20 11:45 97.8 F 71 16 113/74 98 04/16/20 08:00 97.9 F 64 16 115/74 96 Weight Admit Weight 158 lb Weight 157 lb I&O: 04/15/20 04/16/20 04/17/20 06:59 06:59 06:59 Intake Total 400 Balance 400 Result Diagrams: 04/16/20 05:52 04/16/20 05:52 Hospitalist ROS - Medication Medications: Active Medications Generic Name Dose Route Start Last Admin Trade Name Freq PRN Reason Stop Dose Admin Ascorbic Acid 1,000 mg 04/12/20 09:00 04/16/20 10:22 Ascorbic Acid 500 Mg Chewable Tablet PO 1,000 mg DAILY AFTAB Administration Atorvastatin Calcium 10 mg 04/14/20 21:00 04/15/20 20:40 Atorvastatin Calcium 10 Mg Tab PO 10 mg HS AFTAB Administration Cholecalciferol 5,000 units 04/12/20 09:00 04/16/20 10:22 Cholecalciferol 1,000 Units (25 Mcg) Tab PO 5,000 units DAILY AFTAB Administration Dexamethasone 6 mg 04/12/20 09:00 04/16/20 10:22 Dexamethasone 4 Mg/Ml Vial SLOW IVP 6 mg DAILY AFTAB Administration Enoxaparin Sodium 40 mg 04/11/20 21:00 04/16/20 10:23 Enoxaparin Sodium 40 Mg/0.4 Ml Syringe SC 40 mg 0900,2100 AFTAB Administration Losartan Potassium 50 mg 04/15/20 09:00 04/16/20 10:23 Losartan 25 Mg Tab PO 50 mg DAILY AFTAB Administration Ondansetron HCl 4 mg 04/11/20 18:59 04/13/20 11:44 Ondansetron Pf 4 Mg/2 Ml Vial IVP 4 mg Q6H PRN Administration Nausea/Vomiting Pantoprazole Sodium 40 mg 04/13/20 09:00 04/16/20 10:22 Pantoprazole 40 Mg Tab PO 40 mg DAILY AFTAB Administration Saccharomyces Boulardii 250 mg 04/12/20 09:00 04/16/20 10:22 Saccharomyces Boulardii 250 Mg Cap PO 250 mg DAILY AFTAB Administration Sodium Chloride 10 ml 04/11/20 18:59 04/13/20 11:39 Flush - Normal Saline 10 Ml Syringe IVF 10 ml PRN PRN Administration Saline Flush Zinc Sulfate 220 mg 04/12/20 09:00 04/16/20 10:46 Zinc Sulfate 220 Mg Cap PO Not Given DAILY AFTAB - Exam Eye: PERRL, anicteric sclera Neck: no JVD Heart: RRR, no murmur, no gallops, no rubs, normal peripheral pulses Respiratory: no wheezes, no ronchi, rales (at both bases) Gastrointestinal: soft, non-tender, non-distended, normal bowel sounds, no palpable masses, no hepatomegaly Extremities: no cyanosis, no edema Hosp A/P (1) Acute respiratory failure with hypoxia Code(s): J96.01 - ACUTE RESPIRATORY FAILURE WITH HYPOXIA Status: Acute (2) Pneumonia due to COVID-19 virus Code(s): U07.1 - COVID-19; J12.82 - PNEUMONIA DUE TO CORONAVIRUS DISEASE 2019 Status: Acute (3) Hyperlipidemia Code(s): E78.5 - HYPERLIPIDEMIA, UNSPECIFIED Status: Chronic Qualifiers: Hyperlipidemia type: unspecified Qualified Code(s): E78.5 - Hyperlipidemia, unspecified (4) Hypertension Code(s): I10 - ESSENTIAL (PRIMARY) HYPERTENSION Status: Chronic Qualifiers: Hypertension type: essential hypertension Qualified Code(s): I10 - Essential (primary) hypertension - Plan * Acute respiratory failure due to COVID pneumonia- She will receive her final dose of Remdesivir * HTN- blood pressure is stable * Heart rate was in the mid 50's ( of what was recorded) - will observe * Case Mangement consult for home oxygen
--- NOTE | 2020-04-16 18:15 | PDOC.DS.DS ---
Provider - Provider Date of Admission: 04/11/20 18:35 Date of Discharge: 04/16/20 Admitting Provider: Katey Mandel MD Primary Care Physician: Unknown Course - Hospital Course Hospital Course: Ms. Baker is a pleasant 64-year-old female that has a history of hypertension and hyperlipidemia. She presented to the emergency room with complaints of chest pain for the past week. She also noted some shortness of breath. She had been diagnosed with COVID-19 virus 9 days prior to admission. She was also requiring supplemental oxygen. She was admitted to the hospital. CT angiogram done in the emergency room was negative for pulmonary embolism but showed findings consistent with COVID-19 pneumonia. She was started on remdesivir as well as dexamethasone. She improved over the course of the next several days. Home oxygen was arranged. And once this was delivered the patient was able to be discharged home. Pertinent Studies: CTA- Chest Resuscitation Status: 04/11/20 18:59 Resuscitation Status Routine Co-Sign Provider: Resuscitation Status: FULL: Full Resuscitation Discussed with: patient - Labs Lab Results: 04/16/20 05:52 04/16/20 05:52 Abnormal Lab Results - Last 48 hrs 04/15/20 06:17: BUN 28 H 04/15/20 06:17: RBC 4.08 L, RDW 11.4 L, Lymphocytes % 19.4 L, Monocytes % 10.3 H, Monocytes # 0.8 H 04/16/20 05:52: BUN 27 H 04/16/20 05:52: RBC 4.09 L, RDW 11.3 L, MPV 7.3 L, Lymphocytes % 17.1 L, Neutrophils # 6.7 H, Monocytes # 0.8 H - Physical Exam Vitals: Vital Signs (12 hours) Temp Pulse Resp BP Pulse Ox 04/16/20 17:01 97.9 F 70 16 111/78 98 04/16/20 11:45 97.8 F 71 16 113/74 98 04/16/20 08:00 97.9 F 64 16 115/74 96 Weight Admit Weight 158 lb Weight 157 lb Physical Exam: The patient was seen and examined on the day of discharge. Problem - Problem (1) Acute respiratory failure with hypoxia Code(s): J96.01 - ACUTE RESPIRATORY FAILURE WITH HYPOXIA Status: Acute (2) Pneumonia due to COVID-19 virus Code(s): U07.1 - COVID-19; J12.82 - PNEUMONIA DUE TO CORONAVIRUS DISEASE 2019 Status: Acute (3) Hyperlipidemia Code(s): E78.5 - HYPERLIPIDEMIA, UNSPECIFIED Status: Chronic Qualifiers: Hyperlipidemia type: unspecified Qualified Code(s): E78.5 - Hyperlipidemia, unspecified (4) Hypertension Code(s): I10 - ESSENTIAL (PRIMARY) HYPERTENSION Status: Chronic Qualifiers: Hypertension type: essential hypertension Qualified Code(s): I10 - Essential (primary) hypertension Plan - Discharge Medications Prescriptions: Dexamethasone [Decadron] 6 mg PO DAILY #6 tablet Saccharomyces boulardii [Florastor] 250 mg PO DAILY #30 cap Home Medications: Medication Instructions Recorded Confirmed Type Losartan [Cozaar] 50 mg PO DAILY 04/11/20 04/11/20 History Lovastatin [Altoprev] 40 mg PO DAILY 04/12/20 04/12/20 History Nebivolol HCl [Bystolic] 1 tab PO DAILY 04/12/20 04/12/20 History Ascorbic Acid [Vitamin C] 1,000 mg PO DAILY tab 04/16/20 Rx Dexamethasone [Decadron] 6 mg PO DAILY #6 tablet 04/16/20 Rx Saccharomyces boulardii [Florastor] 250 mg PO DAILY #30 cap 04/16/20 Rx Zinc Sulfate 220 mg PO DAILY cap 04/16/20 Rx Allergies: Penicillins Allergy (Verified 04/12/20 02:40) sulfamethoxazole [From Bactrim] Allergy (Verified 04/12/20 02:40) trimethoprim [From Bactrim] Allergy (Verified 04/12/20 02:40) - Discharge Instructions Discharge Instructions:: Follow-up with your Primary Care Provider in 2-3 weeks YOUR PRESCRIPTIONS WERE SENT TO: [facility] [address], [place] [address] Activity:: Activity as Tolerated Nourishment:: Heart Healthy Diet - Follow up Plan Referrals: [facility] [Outside] Unknown,Unknown [Primary Care Provider] - Disposition: HOME Quality - Care Measures CORE MEASURES:: N/A
== END 2020-04-16 18:32 | disposition home or self-care (01) | DRG 177 ==
LOC: ERS 16:46 → OBSVTOIN 18:35 → T4-B 18:35
PROVIDERS: ADMIT Internal Medicine; ATTEND Internal Medicine
PROC: 8E0ZXY6 Isolation (ICD-10-PCS; 2020-04-11)
PROC: XW033E5 Introduction of Remdesivir Anti-infective into Peripheral Vein, Percutaneous Approach, New Technology Group 5 (ICD-10-PCS; principal; 2020-04-12)
DX: U07.1 COVID-19 (principal); J12.82 Pneumonia due to coronavirus disease 2019; J96.01 Acute respiratory failure with hypoxia; E78.00 Pure hypercholesterolemia, unspecified; I10 Essential (primary) hypertension; E78.5 Hyperlipidemia, unspecified; E86.0 Dehydration; Z90.710 Acquired absence of both cervix and uterus; Z79.899 Other long term (current) drug therapy; Z88.1 Allergy status to other antibiotic agents; Z88.0 Allergy status to penicillin; Z88.2 Allergy status to sulfonamides
CPT/HCPCS: 36415; 71045; 71275; 80048; 80053; 82728; 83605; 84484; 85025; 85379; 85610; 85652; 85730; 86140; 87635; 93005; 94760; 96365; 96375; J0696; J1100; J1650; J2405; J7050; Q9967; U0003; U0005

== ENCOUNTER 2020-05-28 07:50 | Outpatient (CLI) | payer OTHER ==
--- NOTE | 2020-05-28 08:29 | MMO ---
Bilateral MAMMO Bilat Screen [facility]. CLINICAL HISTORY: Patient is 64 years old and is seen for screening. The patient has no family history of breast cancer. The patient has no personal history of cancer. VIEWS: The views performed were: bilateral craniocaudal with tomosynthesis; bilateral mediolateral oblique with tomosynthesis; and right exaggerated craniocaudal. FILMS COMPARED: The present examination has been compared to prior imaging studies performed at [facility] on 02/26/2016, 03/31/2017, 04/06/2018 and 04/14/2019. This study has been interpreted with the assistance of computer-aided detection. MAMMOGRAM FINDINGS: There are scattered fibroglandular densities. There are no suspicious masses, suspicious calcifications, or new areas of architectural distortion. IMPRESSION: THERE IS NO MAMMOGRAPHIC EVIDENCE OF MALIGNANCY. A ROUTINE FOLLOW-UP MAMMOGRAM IN 1 YEAR IS RECOMMENDED. THE RESULTS OF THIS EXAM WERE SENT TO THE PATIENT. ACR BI-RADS Category 1 - Negative MAMMOGRAPHY NOTE: 1. A negative mammogram report should not delay a biopsy if a dominant of clinically suspicious mass is present. 2. Approximately 10% to 15% of breast cancers are not detected by mammography. 3. Adenosis and dense breasts may obscure an underlying neoplasm. Reported by: CANDI SALVADOR MD Electonically Signed: [id number]
== END 2020-05-28 07:51 | disposition home or self-care (01) ==
LOC: BICMAMMO 07:50
PROVIDERS: ATTEND Family Medicine
DX: Z12.31 Encounter for screening mammogram for malignant neoplasm of breast (principal)
CPT/HCPCS: 77063; 77067

== ENCOUNTER 2022-05-20 07:48 | Outpatient (CLI) | payer MEDICARE | END 2022-05-20 07:49 | disposition home or self-care (01) | LOC: BICMAMMO 07:48 | PROVIDERS: ATTEND Family Medicine | DX: Z12.31 Encounter for screening mammogram for malignant neoplasm of breast (principal) | CPT/HCPCS: 77063; 77067 ==

== ENCOUNTER 2023-10-23 08:38 | Outpatient (CLI) | payer MEDICARE | END 2023-10-23 08:39 | disposition home or self-care (01) | LOC: BICMAMMO 08:38 | PROVIDERS: ATTEND Family Medicine | DX: Z13.820 Encounter for screening for osteoporosis (principal); E28.39 Other primary ovarian failure; M85.88 Other specified disorders of bone density and structure, other site; Z78.0 Asymptomatic menopausal state | CPT/HCPCS: 77080 ==

== ENCOUNTER 2024-11-10 13:00 | Outpatient (CLI) | payer MEDICARE | END 2024-11-10 13:01 | disposition home or self-care (01) | LOC: BICULT 13:00 | PROVIDERS: ATTEND Internal Medicine Cardiovascular Disease | DX: M79.89 Other specified soft tissue disorders (principal) ==